=== PATIENT | male | born 1960 ===

== ENCOUNTER → 2017-09-27 14:03 | Outpatient (CLI) | payer OTHER | END | disposition home or self-care (01) | LOC: LAB 14:03 | DX: R97.20 Elevated prostate specific antigen [PSA] (principal) ==

== ENCOUNTER 2017-11-15 07:56 | Outpatient (CLI) | payer OTHER | END 2017-11-15 08:09 | disposition home or self-care (01) | LOC: SONOGRAMA 07:56 | DX: R97.20 Elevated prostate specific antigen [PSA] (principal) ==

== ENCOUNTER 2017-12-13 13:04 | Outpatient (CLI) | payer OTHER | END 2017-12-13 13:13 | disposition home or self-care (01) | LOC: RAD 13:04 | DX: M54.5 Low back pain (principal) ==

== ENCOUNTER 2020-09-29 07:41 | Outpatient (CLI) | payer OTHER | END 2020-09-29 07:48 | disposition home or self-care (01) | LOC: RAD 07:41 | PROVIDERS: ATTEND Internal Medicine | DX: R31.29 Other microscopic hematuria (principal) ==

== ENCOUNTER 2021-04-30 09:15 | Outpatient (CLI) | payer OTHER | END 2021-04-30 09:29 | disposition home or self-care (01) | LOC: SONOGRAMA 09:15 | PROVIDERS: ATTEND Urology | DX: R31.21 Asymptomatic microscopic hematuria (principal); C61 Malignant neoplasm of prostate; N20.1 Calculus of ureter ==

== ENCOUNTER 2023-03-21 10:03 | Outpatient (CLI) | payer OTHER | END 2023-03-21 10:09 | disposition home or self-care (01) | LOC: RAD 10:03 | PROVIDERS: ATTEND Physical Medicine & Rehabilitation | DX: M75.21 Bicipital tendinitis, right shoulder (principal) ==

== ENCOUNTER 2023-04-19 07:09 | Outpatient (CLI) | payer OTHER | END 2023-04-19 07:16 | disposition home or self-care (01) | LOC: SONOGRAMA 07:09 | PROVIDERS: ATTEND Internal Medicine | DX: I11.9 Hypertensive heart disease without heart failure (principal) ==